=== PATIENT | male | born 1980 | race Caucasian/White ===

== ENCOUNTER → 2022-05-11 10:11 | Outpatient (BNVA) | payer BC, SELFPAY | PROVIDERS: PCP Family Medicine; Visit Provider Family Medicine | DX: E78.2 Mixed hyperlipidemia (principal); I10 Essential (primary) hypertension | CPT/HCPCS: 80053; 80061; 85025 ==

== ENCOUNTER → 2022-12-25 09:25 | Outpatient (BNVA) | payer BC, SELFPAY | PROVIDERS: PCP Family Medicine; Visit Provider Family Medicine | DX: I10 Essential (primary) hypertension (principal); E78.2 Mixed hyperlipidemia; R53.83 Other fatigue; R68.82 Decreased libido; R73.03 Prediabetes | CPT/HCPCS: 80048; 83036; 84403; 84443; 85025; G0103 ==

== ENCOUNTER 2023-02-06 08:19 | Day surgery (SDC) | payer BC, SELFPAY ==
[2023-02-05 10:25] VITALS: BMI 35.6
[2023-02-06 08:33] VITALS: BP 125/84; PULSE 71; RESP 18; TEMP 36.5; O2SAT 96
[2023-02-06] MEDS: sodium chloride 0.9% 1,000 ML 30 ML IV (08:47)
--- NOTE | 2023-02-06 09:02 | P.ANESASSM_ITS ---
Pre-Anesthetic Assessment Height/Weight: Height 1.7 m Weight 103.419 kg Temp Pulse Resp BP Pulse Ox O2 Del Method 97.7 F 71 18 125/84 96 Room Air 02/06/23 08:33 02/06/23 08:33 02/06/23 08:33 02/06/23 08:33 02/06/23 08:33 02/06/23 08:33 Operation Date: 02/06/23 09:15 Proposed Procedures p [address] egd w/balloon dial, [address] colon K21.9,K92.1, R13.10(Not Applicable) - Juanito Girer DO s Colonoscopy(Not Applicable) - Juanito Grier DO Was Beta Lisa taken within 24 hours: N/A Was Clonidine taken within 24 hours: N/A Last intake: Intake Last Liquid Date 02/05/23 Last Liquid Time 23:30 Last Solid Date 02/05/23 Last Solid Time 07:00 Social No alcohol and No tobacco Exam alert, oriented x 3, clear to auscultation bilaterally and regular rate & rhythm Airway Submandibular: within normal limits Cervical ROM: within normal limits Mallampati: Class I History/ROS No significant history except as noted and No significant complaints Pulmonary None reported CV/HEM Hypertension None reported Hepatic None reported GI Gastroesophageal Reflux Disease dsphagia Metabolic Hyperlipidemia [facility] None reported Neuropsych None reported Anesthetic Plan ASA status: 2 Anesthesia: Anesthesia Evaluation, General and MAC Risk of > 500 ml blood loss (7ml/kg in children): Yes, adequate IV access and fluids planned Medications/Allergies Home Medications Medication Instructions Recorded Confirmed Last Taken Type fluticasone propionate 50 2 spray intranasal DAILY PRN nasal 07/13/22 02/06/23 Unknown Rx mcg/actuation nasal congestion #16 grams spray,suspension loratadine 10 mg tablet 10 mg PO DAILY #30 tabs 07/13/22 02/06/23 Unknown Rx atorvastatin 20 mg tablet 20 mg PO DAILY #90 tabs 07/16/22 02/06/23 02/05/23 Rx amlodipine 10 mg tablet 10 mg PO DAILY #90 tabs 12/25/22 02/06/23 02/05/23 Rx sildenafil (pulm.hypertension) 20 20 mg PO TID #270 tabs 12/25/22 02/06/23 Unknown Rx mg tablet pantoprazole 40 mg tablet,delayed 40 mg PO BID #180 tabs 01/17/23 02/06/23 02/05/23 Rx release Allergies Allergy/AdvReac Type Severity Reaction Status Date / Time No Known Allergies Allergy Unverified 02/06/23 08:31 Current Medications Generic Name Dose Route Start Last Admin Trade Name Freq PRN Reason Stop Dose Admin Sodium Chloride 1,000 mls @ 30 mls/hr 02/06/23 08:30 02/06/23 08:47 Sodium Chloride 0.9% IV 02/07/23 08:29 30 mls/hr .Q24H QUINCY Administration PFSH Anesthesia Medical History (Updated 02/05/23 @ 09:21 by Juanito Grier DO) Abnormal endoscopy of upper gastrointestinal tract Post-nasal drainage Sore throat and laryngitis Surgical History (Updated 02/05/23 @ 09:21 by Juanito Grier DO) Hx of hernia repair Hx of tonsillectomy Social History Smoking and tobacco status: never smoked Data Anesthesia Cardiac Studies: No Data to Display
--- NOTE | 2023-02-06 10:10 | W.PM.OPSUD ---
Surgery/Procedure H&P Update DATE OF PROCEDURE: February 06, 2023 DATE H&P PERFORMED: 02/05/23 H&P UPDATE INFORMATION: I have reviewed H&P completed within last 30 days, I have examined patient prior to procedure and No changes to prior documentation PLANNED PROCEDURE: Operation Date: 02/06/23 09:15 Proposed Procedures p 83029 egd w/balloon dial, [address] colon K21.9,K92.1, R13.10(Not Applicable) - DO ze Hinojosa Colonoscopy(Not Applicable) - Juanito Grier DO
[2023-02-06 10:37] VITALS: BP 117/70; PULSE 69; RESP 12; TEMP 36.4; O2SAT 94
[2023-02-06 10:50] VITALS: BP 120/69; PULSE 65; RESP 16; TEMP 36.4; O2SAT 92
--- NOTE | 2023-02-06 10:50 | ANE.PACU2 ---
Inpatient post-anesthesia follow up: Airway intact: Yes Vital signs: Temperature 97.5 F Pulse Rate 65 Respiratory Rate 17 Blood Pressure 118/68 Pulse Oximetry 95 Oxygen Delivery Me thod Room Air Oxygen Flow Rate Fraction of Inspir ed Oxygen Hydration adequate: Yes Nausea and vomiting: No Pain level: 1 Mental status: Baseline
[2023-02-06 11:00] VITALS: BP 118/68; PULSE 65; RESP 17; TEMP 36.4; O2SAT 95
== END 2023-02-06 11:12 | disposition home or self-care (01) ==
PROVIDERS: PCP Family Medicine; Visit Provider Surgery
PROC: 0DJD8ZZ Inspection of Lower Intestinal Tract, Via Natural or Artificial Opening Endoscopic (ICD-10-PCS; CPT 45378; 2023-02-06 09:15)
DX: K92.1 Melena (principal); K21.9 Gastro-esophageal reflux disease without esophagitis; R13.10 Dysphagia, unspecified; B96.81 Helicobacter pylori [H. pylori] as the cause of diseases classified elsewhere; I10 Essential (primary) hypertension; E78.5 Hyperlipidemia, unspecified; K64.8 Other hemorrhoids; K29.70 Gastritis, unspecified, without bleeding
CPT/HCPCS: 43239; 45378; 88305; 88342; J2704; J3010; J7030

== ENCOUNTER → 2023-06-07 07:31 | Outpatient (BNVA) | payer BC, SELFPAY | PROVIDERS: PCP Family Medicine; Visit Provider Nurse Practitioner Family | DX: R39.15 Urgency of urination (principal); R35.0 Frequency of micturition | CPT/HCPCS: 81000 ==

== ENCOUNTER → 2023-07-10 17:30 | Outpatient (BNVA) | payer BC, SELFPAY | PROVIDERS: PCP Family Medicine; Visit Provider Registered Nurse Neonatal Intensive Care | DX: R10.9 Unspecified abdominal pain (principal); N45.1 Epididymitis | CPT/HCPCS: 81000; 87086 ==

== ENCOUNTER → 2023-11-06 11:23 | Outpatient (BNVA) | payer BC, SELFPAY | PROVIDERS: PCP Family Medicine; Visit Provider Family Medicine | DX: I10 Essential (primary) hypertension (principal); E78.2 Mixed hyperlipidemia; R73.03 Prediabetes; R53.82 Chronic fatigue, unspecified | CPT/HCPCS: 80053; 80061; 83036; 84403; 84443; 85025 ==

== ENCOUNTER 2024-01-27 05:09 | Emergency (ER) | payer BC, SELFPAY ==
[2024-01-27 05:20] VITALS: BP 140/89; PULSE 65; RESP 16; TEMP 36.3; O2SAT 98; BMI 36.0
[2024-01-27] MEDS: metoclopramide 5 mg/mL SDV 2 mL 10 MG IVP (05:23)
[2024-01-27] MEDS: diphenhydrAMINE 50 mg/mL SDV 1mL IVP (05:23)
[2024-01-27] MEDS: ketorolac 30 mg/mL INJ 15 MG IVP (05:23)
--- NOTE | 2024-01-27 05:24 | ED_ITS ---
HPI - Headache General: Chief Complaint: Headache Stated Complaint: Migraine Time Seen by Provider: 01/27/24 05:13 Source: patient Mode of arrival: ambulatory Limitations: no limitations History of Present Illness: 43-year-old male states he had history o f migraines he started headache that started last night at 11 PM he states it is gradually worsened headaches now 9 out of 10 states this feels like his previous migraines. He states that he has photophobia and phonophobia denies any fevers. Denies sudden onset of headache. Associated symptoms: Reports nausea; Deny chest pain, fever(s), rash or vomiting Review of Systems Const: Denies: fever(s), chills, body aches or change in appetite ENMT: Denies: throat pain or dental pain Card: Denies: chest pain Resp: Denies: dyspnea GI: Reports: nausea; Denies: abdominal pain, vomiting or diarrhea Musc: Denies: neck pain or back pain Skin/Breast: Denies: rash Neuro: Reports: headache(s) PFSH ED PFSH: Medical History Abnormal endoscopy of upper gastrointestinal tract Sore throat and laryngitis Post-nasal drainage Surgical History Hx of hernia repair Hx of tonsillectomy Social History Smoking and tobacco/nicotine status: never used tobacco/nicotine Physical Exam Const: COMMON NORMALS: no acute distress, patient oriented x3 and healthy appearing HENMT: COMMON NORMALS: normocephalic and atraumatic HEAD & SCALP: normocephalic and atraumatic Eye: COMMON NORMALS: Equal, round and reactive pupils present and EOMs intact bilaterally PUPIL: Yes Equal, round and reactive pupils present Neck/C-Spine: COMMON NORMALS: full ROM and supple Chest: COMMONS NORMALS: normal inspection of the chest Resp: COMMON NORMALS: normal respiratory effort Cardio: COMMON NORMALS: regular rate RATE: regular rate Extremity: COMMON NORMALS: normal to inspection and full ROM Neuro: COMMON NORMALS: patient oriented x3, moves all extremities and no focal motor deficits Psych: COMMON NORMALS: mental status grossly normal, Normal thought process present and cooperative THOUGHT PROCESS: Normal thought process present Skin: COMMON NORMALS: no rashes or lesions noted and no wounds GENERAL SKIN EXAM: no rashes or lesions noted Course Vital Signs: Vital signs: Vital Signs Temperature 97.3 F L 01/27/24 05:20 Pulse Rate 61 01/27/24 06:45 Respiratory Rate 16 01/27/24 05:20 Blood Pressure 114/77 01/27/24 06:45 Pulse Oximetry 96 01/27/24 06:45 Oxygen Delivery Me thod Room Air 01/27/24 06:45 MDM - Headache Medical Decision Making Patient presents here with a migraine headache he has no signs of subarachnoid hemorrhage or meningitis his headaches improved he is stable for discharge follow-up PCP return if worsening. Medical Records I reviewed the patient's medical records. No radiology studies performed this visit Discharge Plan Discharge Patient Disposition: Home Clinical Impression: Headache Condition: Stable Prescriptions: No Action atorvastatin 20 mg tablet See Rx Instructions .ROUTE .COMPLEX Qty: 90 2RF Dose Instruction: TAKE 1 TABLET BY MOUTH EVERY DAY Rx Instructions: TAKE 1 TABLET BY MOUTH EVERY DAY omeprazole 20 mg capsule,delayed release(DR/EC) 20 mg PO BID Qty: 180 0RF amoxicillin-pot clavulanate 875-125 mg tablet 1 tab PO BID Qty: 20 0RF fluticasone propionate [Flonase Allergy Relief] 50 mcg/actuation spray,suspension 1 spray intranasal DAILY Qty: 16 0RF Rx Instructions: administer into each nostril sildenafil (pulm.hypertension) 20 mg tablet 20 mg PO TID Qty: 270 3RF Rx Instructions: administer doses at least 4-6 hours apart amlodipine 10 mg tablet See Rx Instructions .ROUTE .COMPLEX Qty: 90 2RF Dose Instruction: TAKE 1 TABLET BY MOUTH EVERY DAY Rx Instructions: TAKE 1 TABLET BY MOUTH EVERY DAY Discharge Orders: Discharge ED (Routine); Ordered 01/27/24 Ordered By: Caitlyn Garcia Referrals: Neel Cisse DO [Primary Care Provider] - Discharge Diet: Advance as tolerated Discharge Activity: Resume usual activity Patient Instructions: Migraine Headache (ED) Coding Level of Care Code ED [employer] for [employer]
[2024-01-27 05:51] VITALS: PULSE 61; O2SAT 96
[2024-01-27] MEDS: valproic acid inj 500 MG in sodium chloride 0.9% 50 ML 55 MG IV (06:21)
[2024-01-27 06:45] VITALS: BP 114/77; PULSE 61; O2SAT 96
== END 2024-01-27 07:56 | disposition home or self-care (01) ==
PROVIDERS: Emergency Provider Emergency Medicine; PCP Family Medicine
DX: R51.9 Headache, unspecified (principal)
CPT/HCPCS: 96374; 96375; 99284; J1200; J1885; J2765; J3490

== ENCOUNTER 2024-02-02 18:25 | Emergency (ER) | payer OTHER, SELFPAY ==
[2024-02-02 18:27] VITALS: BP 129/95; PULSE 90; RESP 18; TEMP 37.1; O2SAT 97; BMI 36.0
[2024-02-02 18:59] VITALS: PULSE 87; RESP 18; O2SAT 97
--- NOTE | 2024-02-02 19:43 | W.ED.WOUNDLC ---
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 It bled a couple of drops. He scrubbed immediately with hand director of property management. He notes that the blade was clean, and new. He was advised to be evaluated by his superiors. PFSH ED PFSH: Medical History Abnormal endoscopy of upper gastrointestinal tract Sore throat and laryngitis Post-nasal drainage Surgical History Hx of hernia repair Hx of tonsillectomy Social History Smoking and tobacco/nicotine status: never used tobacco/nicotine Physical Exam Const: COMMON NORMALS: no acute distress ORIENTATION/CONSCIOUSNESS: Yes awake, Yes oriented to person, Yes oriented to place and Yes oriented to time Eye: COMMON NORMALS: Equal, round and reactive pupils present and EOMs intact bilaterally PUPIL: Yes Equal, round and reactive pupils present Resp: COMMON NORMALS: normal respiratory effort Extremity: NARRATIVE EXTREMITY EXAM: Exam of the left hand reveals a small puncture wound to the webspace between first and second digits on the palmar surface. Bleeding is controlled. Neuro: SENSORIUM/ORIENTATION: Yes oriented to person, Yes oriented to place and Yes oriented to time Course Vital Signs: Vital signs: Vital Signs Temperature 98.7 F 02/02/24 18:27 Pulse Rate 87 02/02/24 18:59 Respiratory Rate 18 02/02/24 18:59 Blood Pressure 129/95 02/02/24 18:27 Pulse Oximetry 97 02/02/24 18:59 Oxygen Delivery Me thod Room Air 02/02/24 18:27 MDM - Wound/Laceration Medical Decision Making Clean wound, from clean blade. Suspect evidently has hepatitis C. Counseled on low probability of transmission given solid blade versus hollow needle, etc. Patient elected to be tested. Will test for hepatitis acute panel, HIV 1 and 2. Suggested he repeat testing in 6 weeks for confirmation. He elected not to have prophylactic treatment at this point given low risk. No radiology studies performed this visit Discharge Plan Discharge Patient Disposition: Home Clinical Impression: Puncture wound of hand Condition: Stable Prescriptions: No Action atorvastatin 20 mg tablet See Rx Instructions .ROUTE .COMPLEX Qty: 90 2RF Dose Instruction: TAKE 1 TABLET BY MOUTH EVERY DAY Rx Instructions: TAKE 1 TABLET BY MOUTH EVERY DAY omeprazole 20 mg capsule,delayed release(DR/EC) 20 mg PO BID Qty: 180 0RF amoxicillin-pot clavulanate 875-125 mg tablet 1 tab PO BID Qty: 20 0RF fluticasone propionate [Flonase Allergy Relief] 50 mcg/actuation spray,suspension 1 spray intranasal DAILY Qty: 16 0RF Rx Instructions: administer into each nostril sildenafil (pulm.hypertension) 20 mg tablet 20 mg PO TID Qty: 270 3RF Rx Instructions: administer doses at least 4-6 hours apart amlodipine 10 mg tablet See Rx Instructions .ROUTE .COMPLEX Qty: 90 2RF Dose Instruction: TAKE 1 TABLET BY MOUTH EVERY DAY Rx Instructions: TAKE 1 TABLET BY MOUTH EVERY DAY Discharge Orders: Discharge ED (Routine); Ordered 02/02/24 Ordered By: Scooter Huerta Referrals: Neel Cisse DO [Primary Care Provider] - 1 month Patient Instructions: Puncture Wound (ED), Opioid Safety, Pain Management Activity Restrictions/Additional Instructions: You can call for your lab results at any time. Repeat laboratory is always suggested around 6 weeks following the event for confirmation. You may see your doctor as an outpatient for this. Return for any problems. Coding Level of Care Code ED [employer] for [employer]
[2024-02-02 19:55] LABS: HIV 1 & 2 Antibody Non-Reactive (Non-Reactiv); HIV 1 & 2 Antigen Non-Reactive (Non-Reactiv)
[2024-02-02 21:21] LABS: Hepatitis A Antibody IgM Non-Reactive (Nonreactive); Hepatitis B Core IgM Non-Reactive (Nonreactive); Hepatitis B Surface Antigen Non-Reactive (Nonreactive); Hepatitis C Virus Antibody Non-Reactive (Nonreactive)
== END 2024-02-02 18:55 | disposition home or self-care (01) ==
PROVIDERS: Emergency Provider Emergency Medicine; PCP Family Medicine
DX: S61.432A Puncture wound without foreign body of left hand, initial encounter (principal); W26.0XXA Contact with knife, initial encounter; Y99.0 Civilian activity done for income or pay; Z77.21 Contact with and (suspected) exposure to potentially hazardous body fluids
CPT/HCPCS: 36415; 80074; 87806; 99283

== ENCOUNTER → 2024-03-16 11:20 | Outpatient (BNVA) | payer BC, SELFPAY | PROVIDERS: PCP Family Medicine; Visit Provider Nurse Practitioner Family | DX: Z20.822 Contact with and (suspected) exposure to COVID-19 (principal) | CPT/HCPCS: 87426 ==

== ENCOUNTER → 2024-06-26 12:16 | Outpatient (BNVA) | payer BC, SELFPAY | PROVIDERS: PCP Family Medicine; Visit Provider Nurse Practitioner | DX: R39.9 Unspecified symptoms and signs involving the genitourinary system (principal); R35.0 Frequency of micturition | CPT/HCPCS: 81000; 87086 ==

== ENCOUNTER → 2024-07-24 08:53 | Outpatient (BNVA) | payer BC, SELFPAY | PROVIDERS: PCP Family Medicine; Visit Provider Family Medicine | DX: I10 Essential (primary) hypertension (principal); E78.2 Mixed hyperlipidemia; R53.82 Chronic fatigue, unspecified; R68.82 Decreased libido; N52.9 Male erectile dysfunction, unspecified | CPT/HCPCS: 80053; 80061; 84403 ==

== ENCOUNTER → 2024-12-22 09:45 | Outpatient (BNVA) | payer BC, SELFPAY | PROVIDERS: PCP Family Medicine; Visit Provider Family Medicine | DX: I10 Essential (primary) hypertension (principal); E78.2 Mixed hyperlipidemia; R73.03 Prediabetes; R79.89 Other specified abnormal findings of blood chemistry | CPT/HCPCS: 80053; 84403; 85025 ==

== ENCOUNTER 2025-03-03 11:08 | Outpatient (CLI) | payer BC, SELFPAY ==
--- NOTE | 2025-03-03 11:15 | US_ITS ---
WS: [id number] TESTICULAR ULTRASOUND HISTORY: N45.1 - Epididymitis COMPARISON: None available. TECHNIQUE: Real-time and color Doppler imaging utilized to perform a testicular ultrasound. Right testicle: 3.8 cm x 2.6 cm x 2.4 cm. Normal size and echogenicity. No mass or torsion. Normal color Doppler is present throughout. Systolic and diastolic velocities are both present. Small hydrocele. Right epididymis: Normal epididymis with no increased vascularity. Left testicle: 3.6 cm x 3.1 cm x 2.7 cm. Normal size and echogenicity. No mass or torsion. Normal color Doppler is present throughout. Systolic and diastolic velocities are both present. Small hydrocele. Left epididymis: Normal epididymis with no increased vascularity. US/US scrotum [id number] IMPRESSION: 1. No testicular mass or torsion. 2. No ultrasound evidence for epididymitis or orchitis. 3. Small bilateral hydroceles.
== END 2025-03-03 11:09 | disposition home or self-care (01) ==
PROVIDERS: PCP Family Medicine; Visit Provider Family Medicine
DX: N45.1 Epididymitis (principal); N50.89 Other specified disorders of the male genital organs
CPT/HCPCS: 76870